=== PATIENT | female | born 1945 | race Caucasian/White ===

== ENCOUNTER 2016-11-27 09:10 | Emergency (ER) | payer SELFPAY ==
[~2016-11-27] VITALS: Ht 152.4 cm; Wt 47.6 kg
[2016-11-27 10:20] VITALS: BP 116/66
[2016-11-27] MEDS ORDERED: TETANUS-DIPTH-ACEL PERTUSSIS 0.5ML SYRG IM ONE (10:30)
[2016-11-27] MEDS ORDERED: cefTRIAXone SOD 1,000 MG VL IM ONE (10:30)
[2016-11-27] MEDS ORDERED: LIDOCAINE 1% HCL (LOCAL ANESTH.) INJ 20ML MDV ONE (11:00)
[2016-11-27] MEDS ORDERED: BACITRACIN-POLYMYXIN B TOPICAL OINT UD TOP ONE (11:27)
[2016-11-27] MEDS ORDERED: BACITRACIN TOP OINT 1 UD PKG TOP ONE (11:30)
== END 2016-11-27 11:39 | disposition home or self-care (01) ==
LOC: ER 09:10
DX: S51.011A Laceration without foreign body of right elbow, initial encounter (principal); W54.0XXA Bitten by dog, initial encounter; Y93.89 Activity, other specified; Y99.8 Other external cause status; Y92.89 Other specified places as the place of occurrence of the external cause
CPT/HCPCS: 12034; 90471; 90715; 96372; 99284; J0696; J2001

== ENCOUNTER 2016-11-29 09:25 | Emergency (ER) | payer SELFPAY ==
[~2016-11-29] VITALS: Ht 154.9 cm; Wt 47.6 kg
[2016-11-29 09:33] VITALS: BP 112/56
[2016-11-29] MEDS ORDERED: cefTRIAXone SOD 1,000 MG VL IM ONE (11:00)
[2016-11-29] MEDS ORDERED: LIDOCAINE 1% HCL (LOCAL ANESTH.) INJ 20ML MDV IJ ONE (11:15)
== END 2016-11-29 11:19 | disposition left against medical advice (07) ==
LOC: ER 09:25
DX: S51.011D Laceration without foreign body of right elbow, subsequent encounter (principal); Z88.6 Allergy status to analgesic agent; Z53.29 Procedure and treatment not carried out because of patient's decision for other reasons; X58.XXXD Exposure to other specified factors, subsequent encounter

== ENCOUNTER 2016-12-02 09:51 | Emergency (ER) | payer MEDICARE ==
[~2016-12-02] VITALS: Ht 154.9 cm; Wt 47.6 kg
[2016-12-02 10:29] VITALS: BP 132/68
== END 2016-12-02 10:45 | disposition home or self-care (01) ==
LOC: ER 09:51
DX: S51.011D Laceration without foreign body of right elbow, subsequent encounter (principal); W54.0XXD Bitten by dog, subsequent encounter; Y99.8 Other external cause status; Y92.89 Other specified places as the place of occurrence of the external cause; Z88.6 Allergy status to analgesic agent

== ENCOUNTER 2016-12-28 11:54 | Emergency (ER) | payer SELFPAY ==
[~2016-12-28] VITALS: Ht 154.9 cm; Wt 47.6 kg
[2016-12-28 13:53] VITALS: BP 109/64
== END 2016-12-28 18:21 | disposition home or self-care (01) ==
LOC: ER 11:54
DX: S51.011D Laceration without foreign body of right elbow, subsequent encounter (principal); X58.XXXD Exposure to other specified factors, subsequent encounter